=== PATIENT | female | born 1975 | race Two or more races ===

== ENCOUNTER 2022-12-27 12:46 | Emergency (ER) | payer OTHER ==
[~2022-12-27] VITALS: Ht 157.5 cm; Wt 86.2 kg
[2022-12-27 15:52] LABS: HEMATOCRIT 33.9 % (36.0-45.00); HEMOGLOBIN 11.1 g/dL (12.0-15.00); MEAN CELL VOLUME 86.8 fL (80.00-100.00); MEAN CORPUSCULAR HEMOGLOBIN 28.4 pg (27.00-32.0); MEAN CORPUSCULAR HGB CONC 32.7 g/dl (32.0-36.0); PLATELET COUNT 392 K/uL (150-450); RED CELL DISTRIBUTION WIDTH 14.8 % (11.5-14.5)
[2022-12-27 16:12] LABS: CREATININE SERUM 0.69 mg/dL (0.55-1.02); GFR 90.43; POTASSIUM 3.94 mEq/L (3.5-5.1)
== END 2022-12-27 17:51 | disposition home or self-care (01) ==
LOC: ER 12:47
PROVIDERS: Nurse Practitioner Family
DX: R00.2 Palpitations (principal); F41.9 Anxiety disorder, unspecified; R07.89 Other chest pain